=== PATIENT | female | born 1995 | race Caucasian/White ===

== ENCOUNTER 2016-08-19 08:20 | Emergency (ER) | payer MEDICAID ==
[~2016-08-19 08:20] MED LIST: FERROUS SULFAT325 MG PO; MOTRIN600 MG PO; PERCOCET 5/3251 TA1 PO; PHENERGAN25 M1 PO; PRENATAL COMPLE1 TAB PO; PRILOSEC10 MG PO
== END 2016-08-19 09:19 | disposition home or self-care (01) ==
LOC: D.ER 08:20
DX: J01.90 Acute sinusitis, unspecified (principal); F17.200 Nicotine dependence, unspecified, uncomplicated; K21.9 Gastro-esophageal reflux disease without esophagitis

== ENCOUNTER 2016-08-30 18:04 | Emergency (ER) | payer MEDICAID | END 2016-08-30 22:08 | disposition home or self-care (01) | LOC: D.ER 18:04 | DX: J20.9 Acute bronchitis, unspecified (principal); J06.9 Acute upper respiratory infection, unspecified; K21.9 Gastro-esophageal reflux disease without esophagitis ==

== ENCOUNTER 2016-12-04 16:35 | Emergency (ER) | payer OTHER | END 2016-12-04 18:44 | disposition home or self-care (01) | LOC: D.ER 16:35 | DX: G43.909 Migraine, unspecified, not intractable, without status migrainosus (principal); F17.200 Nicotine dependence, unspecified, uncomplicated; K21.9 Gastro-esophageal reflux disease without esophagitis ==

== ENCOUNTER 2017-05-01 21:31 | Emergency (ER) | payer SELFPAY | END 2017-05-01 23:23 | disposition home or self-care (01) | LOC: D.ER 21:31 | DX: S99.921A Unspecified injury of right foot, initial encounter (principal); X50.1XXA Overexertion from prolonged static or awkward postures, initial encounter; Y93.89 Activity, other specified; Y92.410 Unspecified street and highway as the place of occurrence of the external cause; K21.9 Gastro-esophageal reflux disease without esophagitis ==

== ENCOUNTER 2017-06-15 13:34 | Emergency (ER) | payer MEDICAID | END 2017-06-15 18:09 | disposition home or self-care (01) | LOC: D.ER 13:34 | DX: M25.561 Pain in right knee (principal); M23.306 Other meniscus derangements, unspecified meniscus, right knee; K21.9 Gastro-esophageal reflux disease without esophagitis ==

== ENCOUNTER 2017-08-21 19:28 | Emergency (ER) | payer MEDICAID | END 2017-08-22 19:15 | disposition left against medical advice (07) | LOC: D.ER 19:28 | DX: S01.80XA Unspecified open wound of other part of head, initial encounter (principal); X58.XXXA Exposure to other specified factors, initial encounter ==

== ENCOUNTER 2017-09-12 21:44 | Emergency (ER) | payer MEDICAID ==
[~2017-09-12] VITALS: Ht 160 cm; Wt 56.2 kg
[2017-09-12 22:01] VITALS: Ht 160 cm; Wt 56.2 kg
[2017-09-13 00:12] VITALS: BP 102/52
== END 2017-09-13 00:13 | disposition home or self-care (01) ==
LOC: D.ER 21:44
DX: T23.252A Burn of second degree of left palm, initial encounter (principal); X08.8XXA Exposure to other specified smoke, fire and flames, initial encounter; Y93.89 Activity, other specified; Y92.019 Unspecified place in single-family (private) house as the place of occurrence of the external cause

== ENCOUNTER 2017-10-13 10:43 | Emergency (ER) | payer MEDICAID ==
[~2017-10-13] VITALS: Ht 160 cm; Wt 56.4 kg
[2017-10-13 10:59] VITALS: Ht 160 cm; Wt 56.4 kg
[2017-10-13] MEDS ORDERED: CLEOCIN HCL300 MG PO (11:23)
[2017-10-13 11:52] VITALS: BP 220/65
[2017-10-14] MEDS ORDERED: TYLENOL W/CODEI1 TAB PO (18:45)
[2017-10-14] MEDS ORDERED: VOLTAREN75 MG PO (18:45)
== END 2017-10-13 11:59 | disposition home or self-care (01) ==
LOC: D.ER 10:43
DX: N75.0 Cyst of Bartholin's gland (principal)

== ENCOUNTER 2017-10-14 15:58 | Emergency (ER) | payer MEDICAID ==
[~2017-10-14] VITALS: Ht 160 cm; Wt 56.5 kg
[~2017-10-14 15:58] MED LIST changes: +CLEOCIN HCL300 MG PO
[2017-10-14 16:35] VITALS: Ht 160 cm; Wt 56.5 kg
[2017-10-14] MEDS ORDERED: VOLTAREN75 MG PO (18:45)
[2017-10-14] MEDS ORDERED: TYLENOL W/CODEI1 TAB PO (18:45)
[2017-10-14 19:16] VITALS: BP 111/72
== END 2017-10-14 19:18 | disposition home or self-care (01) ==
LOC: D.ER 15:58
DX: N90.7 Vulvar cyst (principal); F17.200 Nicotine dependence, unspecified, uncomplicated

== ENCOUNTER 2017-10-21 19:13 | Emergency (ER) | payer MEDICAID ==
[2017-10-14 16:35] VITALS: BMI 22.0
[~2017-10-21 19:13] MED LIST changes: +TYLENOL W/CODEI1 TAB PO; +VOLTAREN75 MG PO
== END 2017-10-21 19:20 | disposition left against medical advice (07) ==
LOC: D.ER 19:13
DX: R07.9 Chest pain, unspecified (principal)

== ENCOUNTER 2017-11-08 19:26 | Emergency (ER) | payer MEDICAID ==
[~2017-11-08] VITALS: Ht 160 cm; Wt 56.4 kg
[2017-11-08 19:41] VITALS: Ht 160 cm; Wt 56.4 kg
[2017-11-08 20:00] LABS: BASOPHILS 0.3 % (0-2); HEMATOCRIT 38.1 % (36.0-48.0); HEMOGLOBIN 12.1 g/dL (12-16); IMMATURE GRANULOCYTES 0.2 % (0-5); LYMPHOCYTES 32.6 % (15-50); MCH 24.4 pg (26.0-34.0); MCHC 31.8 g/dL (31.0-37.0); MEAN PLATELET VOLUME 12.2 fL (7.4-10.4); NEUTROPHILS 54.9 % (40-80); PLATELET COUNT 262 10x3/uL (130-400); RBC 4.95 10x6/uL (4.00-5.40); WBC 10.5 10x3/uL (4.8-10.8)
[2017-11-08 20:11] LABS: APPEARANCE HAZY (CLEAR); BILIRUBIN NEGATIVE (NEGATIVE); COLOR DK YELLOW (YELLOW); GLUCOSE NEGATIVE (NEGATIVE); HCG URINE NEGATIVE (NEGATIVE); KETONE NEGATIVE (NEGATIVE); NITRITE NEGATIVE (NEGATIVE); PROTEIN NEGATIVE (NEGATIVE); UROBILINOGEN NORMAL (NORMAL)
[2017-11-08 20:14] LABS: RED CELLS - URINE 0-5 /hpf (0-5)
[2017-11-08 20:15] LABS: BACTERIA MODERATE /hpf (NONE SEEN)
[2017-11-08 20:15] LABS: ALBUMIN 3.6 g/dL (3.4-5.0); ALKALINE PHOSPHATASE 84 U/L (46-116); ALT (SGPT) 15 U/L (10-68); CALC OSMOLALITY 279 mosm/kg (275-300); CALCIUM 9.1 mg/dL (8.5-10.1); CARBON DIOXIDE 27.3 mmol/L (21.0-32.0); CHLORIDE - SERUM 105 mmol/L (98-107); CREATININE - SERUM 0.8 mg/dL (0.6-1.3); GLUCOSE 83 mg/dL (74-106); POTASSIUM - SERUM 3.8 mmol/L (3.5-5.1); PROTEIN - SERUM 7.6 g/dL (6.4-8.2); SODIUM 141 mmol/L (136-145); UREA NITROGEN 13 mg/dL (7-18); eGFR NON AFRICAN AMERICAN > 90 mL/min (90-120)
[2017-11-08 20:17] LABS: MUCUS <1+ /lpf (NONE SEEN)
[2017-11-08 20:24] LABS: BILIRUBIN - TOTAL 0.08 mg/dL (0.2-1.3)
[2017-11-08] MEDS ORDERED: TORADOL10 MG PO (21:09)
[2017-11-08] MEDS ORDERED: MACROBID100 MG PO (21:09)
[2017-11-08 21:34] VITALS: BP 115/79
[2017-11-11 07:27] LABS: CHLAMYDIA TRACHOMATIS, NAA Negative (Negative)
== END 2017-11-08 21:35 | disposition home or self-care (01) ==
LOC: D.ER 19:26
PROVIDERS: Family Medicine
DX: R10.9 Unspecified abdominal pain (principal); N39.0 Urinary tract infection, site not specified

== ENCOUNTER 2017-11-22 19:52 | Emergency (ER) | payer MEDICAID ==
[~2017-11-22] VITALS: Ht 160 cm; Wt 56.4 kg
[~2017-11-22 19:52] MED LIST changes: +MACROBID100 MG PO; +TORADOL10 MG PO
[2017-11-22 20:01] VITALS: Ht 160 cm; Wt 56.4 kg
[2017-11-22 20:20] LABS: APPEARANCE HAZY (CLEAR); BILIRUBIN NEGATIVE (NEGATIVE); COLOR YELLOW (YELLOW); GLUCOSE NEGATIVE (NEGATIVE); KETONE NEGATIVE (NEGATIVE); NITRITE NEGATIVE (NEGATIVE); PROTEIN NEGATIVE (NEGATIVE); UROBILINOGEN NORMAL (NORMAL)
[2017-11-22 20:22] LABS: BACTERIA MODERATE /hpf (NONE SEEN); EPITHELIAL CELLS 0-5 /hpf (0-5); RED CELLS - URINE 25-50 /hpf (0-5); WHITE CELLS - URINE 0-5 /hpf (0-5)
[2017-11-22 20:23] LABS: AMORPHOUS SEDIMENT <1+ /lpf (NONE SEEN)
[2017-11-22] MEDS ORDERED: MAXALT10 MG PO (21:12)
[2017-11-22] MEDS ORDERED: CIPRO500 MG PO (21:13)
[2017-11-22 21:39] VITALS: BP 116/70
== END 2017-11-22 21:41 | disposition home or self-care (01) ==
LOC: D.ER 19:52
PROVIDERS: Emergency Medicine
DX: G43.909 Migraine, unspecified, not intractable, without status migrainosus (principal); N30.90 Cystitis, unspecified without hematuria; H92.01 Otalgia, right ear; M54.2 Cervicalgia; R35.0 Frequency of micturition

== ENCOUNTER 2017-11-27 16:37 | Emergency (ER) | payer MEDICAID ==
[~2017-11-27] VITALS: Ht 160 cm; Wt 56.4 kg
[~2017-11-27 16:37] MED LIST changes: +CIPRO500 MG PO; +MAXALT10 MG PO
[2017-11-27 16:40] VITALS: Ht 160 cm; Wt 56.4 kg
[2017-11-27] MEDS ORDERED: PHENAZOPYRIDIN200 MG PO (17:32)
[2017-11-27 18:47] VITALS: BP 125/69
== END 2017-11-27 18:48 | disposition home or self-care (01) ==
LOC: D.ER 16:37
DX: N39.0 Urinary tract infection, site not specified (principal)

== ENCOUNTER → 2017-12-10 13:21 | Outpatient (CLI) | payer MEDICAID ==
[2017-11-27 16:40] VITALS: BMI 22.0
[~2017-12-10 13:21] MED LIST changes: +PHENAZOPYRIDIN200 MG PO; +ZOFRAN8 MG PO
== END | disposition home or self-care (01) ==
LOC: D.CT 13:21
DX: N28.89 Other specified disorders of kidney and ureter (principal)

== ENCOUNTER 2017-12-24 08:48 | Emergency (ER) | payer MEDICAID ==
[~2017-12-24] VITALS: Ht 160 cm; Wt 54.5 kg
[~2017-12-24 08:48] MED LIST changes: -ZOFRAN8 MG PO
[2017-12-24 08:58] VITALS: Ht 160 cm; Wt 54.5 kg
[2017-12-24] MEDS ORDERED: MAXALT10 MG PO (10:53)
[2017-12-24] MEDS ORDERED: ZOFRAN8 MG PO (10:53)
[2017-12-24 11:18] VITALS: BP 122/068
== END 2017-12-24 11:19 | disposition home or self-care (01) ==
LOC: D.ER 08:48
DX: G43.909 Migraine, unspecified, not intractable, without status migrainosus (principal); R11.0 Nausea

== ENCOUNTER 2018-01-19 09:58 | Emergency (ER) | payer MEDICAID ==
[~2018-01-19] VITALS: Ht 160 cm; Wt 56.4 kg
[~2018-01-19 09:58] MED LIST changes: +ZOFRAN8 MG PO
[2018-01-19 10:08] VITALS: Ht 160 cm; Wt 56.4 kg
[2018-01-19 11:12] VITALS: BP 130/70
== END 2018-01-19 11:13 | disposition home or self-care (01) ==
LOC: D.ER 09:58
DX: G43.909 Migraine, unspecified, not intractable, without status migrainosus (principal)

== ENCOUNTER 2018-03-04 09:47 | Emergency (ER) | payer MEDICAID ==
[~2018-03-04] VITALS: Ht 160 cm; Wt 55.9 kg
[2018-03-04 10:09] VITALS: Ht 160 cm; Wt 55.9 kg
[2018-03-04] MEDS ORDERED: NORCO 7.5/325 T1 TA1 PO (10:11)
[2018-03-04] MEDS ORDERED: AMOXICILLIN500 M1 PO (10:11)
[2018-03-04 10:54] LABS: BASOPHILS 0.4 % (0-2); HEMATOCRIT 39.1 % (36.0-48.0); HEMOGLOBIN 11.9 g/dL (12-16); IMMATURE GRANULOCYTES 0.2 % (0-5); LYMPHOCYTES 25.4 % (15-50); MCH 22.9 pg (26.0-34.0); MCHC 30.4 g/dL (31.0-37.0); MCV 75.3 fL (80.0-100.0); MEAN PLATELET VOLUME 11.4 fL (7.4-10.4); MONOCYTES 8.5 % (2-11); NEUTROPHILS 63.5 % (40-80); PLATELET COUNT 223 10x3/uL (130-400); RBC 5.19 10x6/uL (4.00-5.40); RDW 16.8 % (11.5-14.5); WBC 10.3 10x3/uL (4.8-10.8)
[2018-03-04 11:06] LABS: APTT 28.4 SECONDS (22.8-39.4); INR 1.03 (0.85-1.17)
[2018-03-04 11:14] LABS: ALBUMIN 3.7 g/dL (3.4-5.0); ALKALINE PHOSPHATASE 59 U/L (46-116); ALT (SGPT) 17 U/L (10-68); BILIRUBIN - TOTAL 0.32 mg/dL (0.2-1.3); CALC OSMOLALITY 277 mosm/kg (275-300); CALCIUM 9.9 mg/dL (8.5-10.1); CARBON DIOXIDE 26.7 mmol/L (21.0-32.0); CHLORIDE - SERUM 104 mmol/L (98-107); CREATININE - SERUM 0.9 mg/dL (0.6-1.3); GLUCOSE 92 mg/dL (74-106); POTASSIUM - SERUM 3.8 mmol/L (3.5-5.1); PROTEIN - SERUM 7.5 g/dL (6.4-8.2); SODIUM 140 mmol/L (136-145); UREA NITROGEN 10 mg/dL (7-18); eGFR NON AFRICAN AMERICAN 82 mL/min (90-120)
[2018-03-04 11:24] LABS: CKMB 0.5 U/L (0.0-3.6); CREATINE KINASE 70 UL (21-215)
[2018-03-04 11:25] LABS: TROPONIN-I < 0.017 ng/mL (0.000-0.060)
[2018-03-04 11:48] LABS: HCG SERUM NEGATIVE (NEGATIVE)
[2018-03-04 12:19] LABS: APPEARANCE HAZY (CLEAR); BILIRUBIN NEGATIVE (NEGATIVE); COLOR STRAW (YELLOW); GLUCOSE NEGATIVE (NEGATIVE); KETONE NEGATIVE (NEGATIVE); NITRITE NEGATIVE (NEGATIVE); PROTEIN NEGATIVE (NEGATIVE); UROBILINOGEN NORMAL (NORMAL)
[2018-03-04 13:12] VITALS: BP 116/75
== END 2018-03-04 13:13 | disposition home or self-care (01) ==
LOC: D.ER 09:47
PROVIDERS: Family Medicine
DX: R53.83 Other fatigue (principal); Z98.890 Other specified postprocedural states; R07.81 Pleurodynia

== ENCOUNTER → 2018-04-02 | Emergency (ER) | payer MEDICAID ==
[~2018-04-02] VITALS: Ht 160 cm; Wt 57.3 kg
[~2018-04-02] MED LIST changes: +AMOXICILLIN500 M1 PO; +NORCO 7.5/325 T1 TA1 PO
[2018-04-02 20:33] VITALS: BP 128/63; Ht 160 cm; Wt 57.3 kg
[2018-04-02 21:18] LABS: APPEARANCE CLEAR (CLEAR); BILIRUBIN NEGATIVE (NEGATIVE); COLOR YELLOW (YELLOW); GLUCOSE NEGATIVE (NEGATIVE); HCG URINE NEGATIVE (NEGATIVE); KETONE MODERATE mg/dL (NEGATIVE); NITRITE NEGATIVE (NEGATIVE); PROTEIN TRACE mg/dL (NEGATIVE); SPECIFIC GRAVITY 1.025 (1.005-1.020); UROBILINOGEN NORMAL (NORMAL)
== END | disposition home or self-care (01) ==
LOC: D.ER 20:08
PROVIDERS: Family Medicine
DX: G43.909 Migraine, unspecified, not intractable, without status migrainosus (principal); F17.200 Nicotine dependence, unspecified, uncomplicated

== ENCOUNTER 2018-05-06 16:19 | Emergency (ER) | payer MEDICAID ==
[~2018-05-06] VITALS: Ht 160 cm; Wt 58.2 kg
[~2018-05-06 16:19] MED LIST changes: +NAPROSYN500 MG PO
[2018-05-06 17:05] VITALS: Ht 160 cm; Wt 58.2 kg
[2018-05-06 18:50] VITALS: BP 107/59
== END 2018-05-06 18:50 | disposition home or self-care (01) ==
LOC: D.ER 16:19
DX: G43.909 Migraine, unspecified, not intractable, without status migrainosus (principal); F17.210 Nicotine dependence, cigarettes, uncomplicated

== ENCOUNTER 2018-05-17 23:04 | Emergency (ER) | payer MEDICAID ==
[~2018-05-17] VITALS: Ht 160 cm; Wt 57.2 kg
[2018-05-17 23:06] VITALS: Ht 160 cm; Wt 57.2 kg
[2018-05-17 23:48] LABS: BASOPHILS 0.2 % (0-2); EOSINOPHILS 3.5 % (0-7); HEMOGLOBIN 13.1 g/dL (12-16); IMMATURE GRANULOCYTES 0.5 % (0-5); LYMPHOCYTES 31.6 % (15-50); MCV 81.5 fL (80.0-100.0); MEAN PLATELET VOLUME 10.7 fL (7.4-10.4); MONOCYTES 8.8 % (2-11); NEUTROPHILS 55.4 % (40-80); RBC 5.03 10x6/uL (4.00-5.40); RDW 18.4 % (11.5-14.5); WBC 10.6 10x3/uL (4.8-10.8)
[2018-05-17 23:58] LABS: HCG SERUM NEGATIVE (NEGATIVE)
[2018-05-18 00:10] LABS: APTT 28.8 SECONDS (22.8-39.4); PROTIME 12.7 SECONDS (11.6-15.0)
[2018-05-18 00:18] LABS: ALBUMIN 3.5 g/dL (3.4-5.0); ALKALINE PHOSPHATASE 70 U/L (46-116); ALT (SGPT) 30 U/L (10-68); BILIRUBIN - TOTAL 0.18 mg/dL (0.2-1.3); CALC OSMOLALITY 278 mosm/kg (275-300); CARBON DIOXIDE 29.8 mmol/L (21.0-32.0); CHLORIDE - SERUM 103 mmol/L (98-107); CREATININE - SERUM 0.7 mg/dL (0.6-1.3); GLUCOSE 102 mg/dL (74-106); PROTEIN - SERUM 7.2 g/dL (6.4-8.2); SODIUM 139 mmol/L (136-145); UREA NITROGEN 15 mg/dL (7-18); eGFR NON AFRICAN AMERICAN > 90 mL/min (90-120)
[2018-05-18 00:29] LABS: CREATINE KINASE 29 UL (21-215); MAGNESIUM - SERUM 2.2 mg/dL (1.8-2.4)
[2018-05-18 00:36] LABS: PLATELET COUNT 286 10x3/uL (130-400)
[2018-05-18 00:37] LABS: TROPONIN-I < 0.017 ng/mL (0.000-0.060)
[2018-05-18] MEDS ORDERED: OMEPRAZOLE40 MG PO (03:21)
[2018-05-18 03:30] VITALS: BP 120/70
== END 2018-05-18 03:30 | disposition home or self-care (01) ==
LOC: D.ER 23:04
PROVIDERS: Family Medicine
DX: K21.9 Gastro-esophageal reflux disease without esophagitis (principal); R07.89 Other chest pain

== ENCOUNTER 2018-05-25 21:12 | Emergency (ER) | payer MEDICAID ==
[~2018-05-25] VITALS: Ht 160 cm; Wt 57.3 kg
[~2018-05-25 21:12] MED LIST changes: +OMEPRAZOLE40 MG PO
[2018-05-25 21:47] VITALS: Ht 160 cm; Wt 57.3 kg
[2018-05-25] MEDS ORDERED: SUMATRIPTAN SUC25 MG PO (21:48)
[2018-05-25] MEDS ORDERED: ZOFRAN8 MG PO (21:49)
[2018-05-25] MEDS ORDERED: ELAVIL10 MG PO (22:24)
[2018-05-25 23:07] VITALS: BP 115/81
== END 2018-05-25 23:07 | disposition home or self-care (01) ==
LOC: D.ER 21:12
DX: G43.909 Migraine, unspecified, not intractable, without status migrainosus (principal)

== ENCOUNTER 2018-06-12 19:34 | Emergency (ER) | payer SELFPAY ==
[~2018-06-12] VITALS: Ht 160 cm; Wt 59.1 kg
[~2018-06-12 19:34] MED LIST changes: +ELAVIL10 MG PO; +SUMATRIPTAN SUC25 MG PO
[2018-06-12 19:35] VITALS: Ht 160 cm; Wt 59.1 kg
[2018-06-12] MEDS ORDERED: ZPAK PO (21:04)
[2018-06-12] MEDS ORDERED: FLUTICASONE PRO16 GM NASAL (21:04)
[2018-06-12 21:49] VITALS: BP 109/76
== END 2018-06-12 21:42 | disposition home or self-care (01) ==
LOC: D.ER 19:34
DX: J01.90 Acute sinusitis, unspecified (principal)

== ENCOUNTER 2018-08-29 00:03 | Emergency (ER) | payer SELFPAY ==
[~2018-08-29] VITALS: Ht 160 cm; Wt 63.6 kg
[~2018-08-29 00:03] MED LIST changes: +FLUTICASONE PRO16 GM NASAL; +ZPAK PO
[2018-08-29 00:27] VITALS: Ht 160 cm; Wt 63.6 kg
[2018-08-29 01:02] LABS: BASOPHILS 0.3 % (0-2); EOSINOPHILS 3.7 % (0-7); HEMATOCRIT 41.3 % (36.0-48.0); HEMOGLOBIN 13.6 g/dL (12-16); IMMATURE GRANULOCYTES 0.3 % (0-5); LYMPHOCYTES 30.7 % (15-50); MCH 27.6 pg (26.0-34.0); MCHC 32.9 g/dL (31.0-37.0); MCV 83.8 fL (80.0-100.0); MEAN PLATELET VOLUME 11.2 fL (7.4-10.4); MONOCYTES 9.5 % (2-11); NEUTROPHILS 55.5 % (40-80); PLATELET COUNT 241 10x3/uL (130-400); RBC 4.93 10x6/uL (4.00-5.40); RDW 14.9 % (11.5-14.5); WBC 9.6 10x3/uL (4.8-10.8)
[2018-08-29 01:17] LABS: ALBUMIN 3.9 g/dL (3.4-5.0); ALKALINE PHOSPHATASE 71 U/L (46-116); ALT (SGPT) 11 U/L (10-68); CALC OSMOLALITY 277 mosm/kg (275-300); CALCIUM 9.1 mg/dL (8.5-10.1); CHLORIDE - SERUM 104 mmol/L (98-107); CREATININE - SERUM 0.7 mg/dL (0.6-1.3); GLUCOSE 90 mg/dL (74-106); POTASSIUM - SERUM 4.4 mmol/L (3.5-5.1); PROTEIN - SERUM 7.7 g/dL (6.4-8.2); SODIUM 140 mmol/L (136-145); UREA NITROGEN 11 mg/dL (7-18); eGFR NON AFRICAN AMERICAN > 90 mL/min (90-120)
[2018-08-29] MEDS ORDERED: ZOFRAN4 MG PO (02:52)
[2018-08-29 03:31] VITALS: BP 123/75
== END 2018-08-29 03:11 | disposition home or self-care (01) ==
LOC: D.ER 00:03
PROVIDERS: Family Medicine
DX: T63.431A Toxic effect of venom of caterpillars, accidental (unintentional), initial encounter (principal); Y92.89 Other specified places as the place of occurrence of the external cause

== ENCOUNTER 2018-09-12 22:42 | Emergency (ER) | payer SELFPAY ==
[~2018-09-12] VITALS: Ht 160 cm; Wt 62.3 kg
[~2018-09-12 22:42] MED LIST changes: +ZOFRAN4 MG PO
[2018-09-12 22:51] VITALS: BP 114/69; Ht 160 cm; Wt 62.3 kg
[2018-09-13] MEDS ORDERED: NAPROSYN500 MG PO (13:28)
[2018-09-13] MEDS ORDERED: ZOFRAN ODT4 MG/UDTAB PO (13:28)
== END 2018-09-13 00:13 | disposition left against medical advice (07) ==
LOC: D.ER 22:42
DX: G43.909 Migraine, unspecified, not intractable, without status migrainosus (principal)

== ENCOUNTER 2018-09-13 12:46 | Emergency (ER) | payer MEDICAID ==
[~2018-09-13] VITALS: Ht 160 cm; Wt 62.3 kg
[2018-09-13 12:49] VITALS: Ht 160 cm; Wt 62.3 kg
[2018-09-13] MEDS ORDERED: ZOFRAN ODT4 MG/UDTAB PO (13:28)
[2018-09-13] MEDS ORDERED: NAPROSYN500 MG PO (13:28)
[2018-09-13 14:08] VITALS: BP 102/55
== END 2018-09-13 14:08 | disposition home or self-care (01) ==
LOC: D.ER 12:46
DX: G43.909 Migraine, unspecified, not intractable, without status migrainosus (principal)

== ENCOUNTER 2018-10-18 15:00 | Emergency (ER) | payer MEDICAID ==
[~2018-10-18] VITALS: Ht 160 cm; Wt 61.4 kg
[~2018-10-18 15:00] MED LIST changes: +ZOFRAN ODT4 MG/UDTAB PO
[2018-10-18 15:07] VITALS: Ht 160 cm; Wt 61.4 kg
[2018-10-18 15:54] LABS: BASOPHILS 0.3 % (0-2); EOSINOPHILS 3.3 % (0-7); HEMATOCRIT 38.9 % (36.0-48.0); HEMOGLOBIN 13.4 g/dL (12-16); IMMATURE GRANULOCYTES 0.3 % (0-5); LYMPHOCYTES 28.7 % (15-50); MCH 28.8 pg (26.0-34.0); MCHC 34.4 g/dL (31.0-37.0); MCV 83.5 fL (80.0-100.0); MEAN PLATELET VOLUME 11.4 fL (7.4-10.4); MONOCYTES 8.7 % (2-11); NEUTROPHILS 58.7 % (40-80); PLATELET COUNT 238 10x3/uL (130-400); RBC 4.66 10x6/uL (4.00-5.40); RDW 14.3 % (11.5-14.5)
[2018-10-18 15:58] LABS: APPEARANCE CLEAR (CLEAR); BILIRUBIN NEGATIVE (NEGATIVE); COLOR YELLOW (YELLOW); GLUCOSE NEGATIVE (NEGATIVE); HCG URINE POSITIVE (NEGATIVE); KETONE NEGATIVE (NEGATIVE); NITRITE NEGATIVE (NEGATIVE); PROTEIN NEGATIVE (NEGATIVE); UROBILINOGEN NORMAL (NORMAL)
[2018-10-18 16:07] LABS: ALBUMIN 3.6 g/dL (3.4-5.0); ALKALINE PHOSPHATASE 64 U/L (46-116); ALT (SGPT) 15 U/L (10-68); BILIRUBIN - TOTAL 0.28 mg/dL (0.2-1.3); CALC OSMOLALITY 277 mosm/kg (275-300); CARBON DIOXIDE 26.3 mmol/L (21.0-32.0); CHLORIDE - SERUM 104 mmol/L (98-107); CREATININE - SERUM 0.8 mg/dL (0.6-1.3); GLUCOSE 126 mg/dL (74-106); POTASSIUM - SERUM 3.7 mmol/L (3.5-5.1); SODIUM 139 mmol/L (136-145); UREA NITROGEN 6 mg/dL (7-18); eGFR NON AFRICAN AMERICAN > 90 mL/min (90-120)
[2018-10-18 16:11] LABS: AMYLASE - SERUM 51 U/L (25-115); LIPASE 105 U/L (73-393); TROPONIN-I < 0.017 ng/mL (0.000-0.060)
[2018-10-18] MEDS ORDERED: ZOFRAN ODT4 MG/UDTAB PO (18:40)
[2018-10-18 20:52] VITALS: BP 102/56
== END 2018-10-18 20:50 | disposition home or self-care (01) ==
LOC: D.ER 15:00
PROVIDERS: Family Medicine
DX: Z34.01 Encounter for supervision of normal first pregnancy, first trimester (principal); Z3A.01 Less than 8 weeks gestation of pregnancy

== ENCOUNTER 2018-10-23 22:29 | Emergency (ER) | payer SELFPAY ==
[~2018-10-23] VITALS: Ht 160 cm; Wt 65.5 kg
[2018-10-23 22:31] VITALS: Ht 160 cm; Wt 65.5 kg
[2018-10-23 22:50] LABS: APPEARANCE CLEAR (CLEAR); BILIRUBIN NEGATIVE (NEGATIVE); COLOR YELLOW (YELLOW); GLUCOSE NEGATIVE (NEGATIVE); KETONE NEGATIVE (NEGATIVE); NITRITE POSITIVE (NEGATIVE); PROTEIN NEGATIVE (NEGATIVE); UROBILINOGEN NORMAL (NORMAL)
[2018-10-23 22:52] LABS: BASOPHILS 0.2 % (0-2); EOSINOPHILS 3.3 % (0-7); HEMATOCRIT 40.1 % (36.0-48.0); HEMOGLOBIN 13.6 g/dL (12-16); IMMATURE GRANULOCYTES 0.2 % (0-5); LYMPHOCYTES 31.4 % (15-50); MCH 28.7 pg (26.0-34.0); MCHC 33.9 g/dL (31.0-37.0); MCV 84.6 fL (80.0-100.0); MEAN PLATELET VOLUME 11.2 fL (7.4-10.4); NEUTROPHILS 55.9 % (40-80); PLATELET COUNT 231 10x3/uL (130-400); RBC 4.74 10x6/uL (4.00-5.40); RDW 14.1 % (11.5-14.5); WBC 8.6 10x3/uL (4.8-10.8)
[2018-10-23 22:53] LABS: BACTERIA MANY /hpf (NONE SEEN); EPITHELIAL CELLS 0-5 /hpf (0-5); RED CELLS - URINE 0-5 /hpf (0-5); WHITE CELLS - URINE 0-5 /hpf (0-5)
[2018-10-23 23:02] LABS: HCG SERUM POSITIVE (NEGATIVE)
[2018-10-23 23:33] LABS: ALBUMIN 3.6 g/dL (3.4-5.0); ALKALINE PHOSPHATASE 56 U/L (46-116); ALT (SGPT) 15 U/L (10-68); BILIRUBIN - TOTAL 0.21 mg/dL (0.2-1.3); CALCIUM 9.4 mg/dL (8.5-10.1); CARBON DIOXIDE 27.4 mmol/L (21.0-32.0); CREATININE - SERUM 0.6 mg/dL (0.6-1.3); GLUCOSE 98 mg/dL (74-106); HCG - QUANTITATIVE (MATERNAL) 63605 mIU/mL; PROTEIN - SERUM 6.8 g/dL (6.4-8.2); UREA NITROGEN 7 mg/dL (7-18); eGFR NON AFRICAN AMERICAN > 90 mL/min (90-120)
[2018-10-23 23:37] LABS: CALC OSMOLALITY 278 mosm/kg (275-300); CHLORIDE - SERUM 107 mmol/L (98-107); POTASSIUM - SERUM 4.1 mmol/L (3.5-5.1); SODIUM 141 mmol/L (136-145)
[2018-10-24] MEDS ORDERED: KEFLEX500 MG PO (01:21)
[2018-10-24 01:49] VITALS: BP 114/74
== END 2018-10-24 01:50 | disposition home or self-care (01) ==
LOC: D.ER 22:29
PROVIDERS: Family Medicine
DX: O23.41 Unspecified infection of urinary tract in pregnancy, first trimester (principal); Z3A.01 Less than 8 weeks gestation of pregnancy; O46.91 Antepartum hemorrhage, unspecified, first trimester

== ENCOUNTER 2018-10-28 13:39 | Emergency (ER) | payer MEDICAID ==
[~2018-10-28] VITALS: Ht 160 cm; Wt 65.5 kg
[~2018-10-28 13:39] MED LIST changes: +KEFLEX500 MG PO
[2018-10-28 13:42] VITALS: Ht 160 cm; Wt 65.5 kg
[2018-10-28] MEDS ORDERED: PRENAVITE1 TAB PO (13:45)
[2018-10-28 14:43] LABS: APPEARANCE CLEAR (CLEAR); BILIRUBIN NEGATIVE (NEGATIVE); COLOR YELLOW (YELLOW); GLUCOSE NEGATIVE (NEGATIVE); KETONE LARGE mg/dL (NEGATIVE); NITRITE NEGATIVE (NEGATIVE); PROTEIN TRACE mg/dL (NEGATIVE); UROBILINOGEN NORMAL (NORMAL)
[2018-10-28 15:29] VITALS: BP 126/84
== END 2018-10-28 15:48 | disposition home or self-care (01) ==
LOC: D.ER 13:39
PROVIDERS: Emergency Medicine
DX: O26.891 Other specified pregnancy related conditions, first trimester (principal); Z3A.01 Less than 8 weeks gestation of pregnancy

== ENCOUNTER 2018-11-27 14:02 | Emergency (ER) | payer MEDICAID ==
[~2018-11-27] VITALS: Ht 160 cm; Wt 60.5 kg
[~2018-11-27 14:02] MED LIST changes: +PRENAVITE1 TAB PO
[2018-11-27 14:11] VITALS: Ht 160 cm; Wt 60.5 kg
[2018-11-27 15:54] LABS: BASOPHILS 0.1 % (0-2); EOSINOPHILS 2.1 % (0-7); HEMATOCRIT 37.1 % (36.0-48.0); HEMOGLOBIN 12.4 g/dL (12-16); IMMATURE GRANULOCYTES 0.3 % (0-5); LYMPHOCYTES 23.4 % (15-50); MCHC 33.4 g/dL (31.0-37.0); MCV 86.7 fL (80.0-100.0); MEAN PLATELET VOLUME 11.4 fL (7.4-10.4); MONOCYTES 8.2 % (2-11); NEUTROPHILS 65.9 % (40-80); PLATELET COUNT 208 10x3/uL (130-400); RBC 4.28 10x6/uL (4.00-5.40); WBC 7.6 10x3/uL (4.8-10.8)
[2018-11-27 16:05] LABS: CALC OSMOLALITY 272 mosm/kg (275-300); CALCIUM 9.3 mg/dL (8.5-10.1); CARBON DIOXIDE 22.9 mmol/L (21.0-32.0); CHLORIDE - SERUM 103 mmol/L (98-107); CREATININE - SERUM 0.6 mg/dL (0.6-1.3); GLUCOSE 111 mg/dL (74-106); POTASSIUM - SERUM 3.6 mmol/L (3.5-5.1); SODIUM 137 mmol/L (136-145); UREA NITROGEN 8 mg/dL (7-18); eGFR NON AFRICAN AMERICAN > 90 mL/min (90-120)
[2018-11-27 16:11] LABS: ALBUMIN 3.6 g/dL (3.4-5.0); ALKALINE PHOSPHATASE 53 U/L (46-116); ALT (SGPT) 12 U/L (10-68); BILIRUBIN - TOTAL 0.29 mg/dL (0.2-1.3); PROTEIN - SERUM 7.3 g/dL (6.4-8.2)
[2018-11-27 16:26] LABS: APPEARANCE CLEAR (CLEAR); BILIRUBIN NEGATIVE (NEGATIVE); COLOR YELLOW (YELLOW); GLUCOSE NEGATIVE (NEGATIVE); KETONE MODERATE mg/dL (NEGATIVE); NITRITE NEGATIVE (NEGATIVE); PROTEIN NEGATIVE (NEGATIVE); UROBILINOGEN NORMAL (NORMAL)
[2018-11-27 18:21] VITALS: BP 105/57
== END 2018-11-27 18:52 | disposition home or self-care (01) ==
LOC: D.ER 14:02
PROVIDERS: Emergency Medicine
DX: O26.891 Other specified pregnancy related conditions, first trimester (principal); O99.331 Smoking (tobacco) complicating pregnancy, first trimester

== ENCOUNTER 2018-12-18 14:53 | Emergency (ER) | payer MEDICAID ==
[~2018-12-18] VITALS: Ht 160 cm; Wt 60.0 kg
[2018-12-18 14:59] VITALS: Ht 160 cm; Wt 60.0 kg
[2018-12-18 17:29] VITALS: BP 102/51
== END 2018-12-18 17:29 | disposition home or self-care (01) ==
LOC: D.ER 14:53
DX: O26.892 Other specified pregnancy related conditions, second trimester (principal); Z3A.15 15 weeks gestation of pregnancy; G43.909 Migraine, unspecified, not intractable, without status migrainosus

== ENCOUNTER 2018-12-21 19:35 | Emergency (ER) | payer MEDICAID ==
[~2018-12-21] VITALS: Ht 160 cm; Wt 60.5 kg
[2018-12-21 19:48] VITALS: Ht 160 cm; Wt 60.5 kg
[2018-12-21 21:07] LABS: BASOPHILS 0.1 % (0-2); EOSINOPHILS 1.3 % (0-7); HEMATOCRIT 36.2 % (36.0-48.0); HEMOGLOBIN 11.9 g/dL (12-16); IMMATURE GRANULOCYTES 0.3 % (0-5); LYMPHOCYTES 12.3 % (15-50); MCH 29.2 pg (26.0-34.0); MCHC 32.9 g/dL (31.0-37.0); MCV 88.7 fL (80.0-100.0); MEAN PLATELET VOLUME 11.5 fL (7.4-10.4); MONOCYTES 5.8 % (2-11); NEUTROPHILS 80.2 % (40-80); PLATELET COUNT 204 10x3/uL (130-400); RBC 4.08 10x6/uL (4.00-5.40); RDW 13.2 % (11.5-14.5); WBC 13.9 10x3/uL (4.8-10.8)
[2018-12-21 21:20] LABS: CALC OSMOLALITY 276 mosm/kg (275-300); CALCIUM 8.6 mg/dL (8.5-10.1); CARBON DIOXIDE 26.3 mmol/L (21.0-32.0); CHLORIDE - SERUM 106 mmol/L (98-107); CREATININE - SERUM 0.6 mg/dL (0.6-1.3); GLUCOSE 83 mg/dL (74-106); SODIUM 141 mmol/L (136-145); UREA NITROGEN 5 mg/dL (7-18); eGFR NON AFRICAN AMERICAN > 90 mL/min (90-120)
[2018-12-21 21:26] LABS: ALBUMIN 2.9 g/dL (3.4-5.0); ALKALINE PHOSPHATASE 61 U/L (46-116); ALT (SGPT) 24 U/L (10-68); BILIRUBIN - TOTAL 0.23 mg/dL (0.2-1.3); PROTEIN - SERUM 6.6 g/dL (6.4-8.2)
[2018-12-21] MEDS ORDERED: ALBUTEROL SULF8.5 GM INH (21:30)
[2018-12-21 22:07] VITALS: BP 114/63
== END 2018-12-21 22:09 | disposition home or self-care (01) ==
LOC: D.ER 19:35
PROVIDERS: Family Medicine
DX: O26.899 Other specified pregnancy related conditions, unspecified trimester (principal); R05 Cough; J20.9 Acute bronchitis, unspecified; R09.89 Other specified symptoms and signs involving the circulatory and respiratory systems; J06.9 Acute upper respiratory infection, unspecified; Z72.0 Tobacco use; Z3A.15 15 weeks gestation of pregnancy

== ENCOUNTER 2018-12-24 08:14 | Emergency (ER) | payer MEDICAID ==
[~2018-12-24] VITALS: Ht 160 cm; Wt 60.3 kg
[~2018-12-24 08:14] MED LIST changes: +ALBUTEROL SULF8.5 GM INH
[2018-12-24 08:17] VITALS: Ht 160 cm; Wt 60.3 kg
[2018-12-24 09:20] LABS: CALC OSMOLALITY 274 mosm/kg (275-300); CALCIUM 8.9 mg/dL (8.5-10.1); CARBON DIOXIDE 25.7 mmol/L (21.0-32.0); CHLORIDE - SERUM 104 mmol/L (98-107); CREATININE - SERUM 0.6 mg/dL (0.6-1.3); GLUCOSE 82 mg/dL (74-106); HEMATOCRIT 35.3 % (36.0-48.0); HEMOGLOBIN 12.3 g/dL (12-16); LYMPHOCYTES 17.6 % (15-50); MCH 29.7 pg (26.0-34.0); MCHC 34.8 g/dL (31.0-37.0); MCV 85.3 fL (80.0-100.0); MEAN PLATELET VOLUME 11.1 fL (7.4-10.4); NEUTROPHILS 76.7 % (40-80); PLATELET COUNT 187 10x3/uL (130-400); POTASSIUM - SERUM 3.8 mmol/L (3.5-5.1); RBC 4.14 10x6/uL (4.00-5.40); RDW 12.9 % (11.5-14.5); SODIUM 139 mmol/L (136-145); UREA NITROGEN 6 mg/dL (7-18); WBC 11.5 10x3/uL (4.8-10.8); eGFR NON AFRICAN AMERICAN > 90 mL/min (90-120)
[2018-12-24 09:26] LABS: ALBUMIN 2.9 g/dL (3.4-5.0); ALKALINE PHOSPHATASE 69 U/L (46-116); ALT (SGPT) 23 U/L (10-68); BILIRUBIN - TOTAL 0.12 mg/dL (0.2-1.3); PROTEIN - SERUM 6.7 g/dL (6.4-8.2)
[2018-12-24 09:47] LABS: APPEARANCE CLEAR (CLEAR); BILIRUBIN NEGATIVE (NEGATIVE); COLOR YELLOW (YELLOW); GLUCOSE NEGATIVE (NEGATIVE); KETONE NEGATIVE (NEGATIVE); NITRITE NEGATIVE (NEGATIVE); PROTEIN NEGATIVE (NEGATIVE); UROBILINOGEN NORMAL (NORMAL)
[2018-12-24 09:48] LABS: BACTERIA MODERATE /hpf (NEGATIVE); EPITHELIAL CELLS 0-5 /hpf (0-5); RED CELLS - URINE 0-5 /hpf (0-5); WHITE CELLS - URINE 0-5 /hpf (NEGATIVE); YEAST <1+ /hpf (NONE SEEN)
[2018-12-24 11:44] VITALS: BP 111/60
== END 2018-12-24 11:08 | disposition home or self-care (01) ==
LOC: D.ER 08:14
PROVIDERS: Family Medicine
DX: O26.892 Other specified pregnancy related conditions, second trimester (principal); Z3A.15 15 weeks gestation of pregnancy; N89.8 Other specified noninflammatory disorders of vagina

== ENCOUNTER 2019-02-12 17:42 | Outpatient (CLI) | payer MEDICAID ==
[2019-02-12 20:39] LABS: UDS - AMPHET NEGATIVE QUAL (NEGATIVE); UDS - BARB NEGATIVE QUAL (NEGATIVE); UDS - BENZO NEGATIVE QUAL (NEGATIVE); UDS - COCAINE NEGATIVE QUAL (NEGATIVE); UDS - OPIATE NEGATIVE QUAL (NEGATIVE); UDS - PCP NEGATIVE QUAL (NEGATIVE); UDS - THC NEGATIVE QUAL (NEGATIVE)
[2019-02-12 20:45] LABS: APPEARANCE CLEAR (CLEAR); COLOR YELLOW (YELLOW); SPECIFIC GRAVITY 1.015 (1.005-1.020)
[2019-02-12 20:46] LABS: BILIRUBIN NEGATIVE (NEGATIVE); GLUCOSE NEGATIVE (NEGATIVE); KETONE MODERATE mg/dL (NEGATIVE); NITRITE POSITIVE (NEGATIVE); PROTEIN TRACE mg/dL (NEGATIVE); UROBILINOGEN NORMAL (NORMAL)
[2019-02-12 20:50] LABS: BACTERIA MANY /hpf (NEGATIVE); EPITHELIAL CELLS 0-5 /hpf (0-5); RED CELLS - URINE 0-5 /hpf (0-5); WHITE CELLS - URINE 0-5 /hpf (NEGATIVE)
[2019-02-12 20:52] LABS: MUCUS <1+ /lpf (NONE SEEN)
== END 2019-02-13 00:18 | disposition home or self-care (01) ==
LOC: D.LDO 17:42 → D.LD 22:12 → D.LDO 02-13 00:18
PROVIDERS: ATTEND Student in an Organized Health Care Education/Training Program
DX: O26.892 Other specified pregnancy related conditions, second trimester (principal); Z3A.22 22 weeks gestation of pregnancy; R10.9 Unspecified abdominal pain; M54.9 Dorsalgia, unspecified; R51 Headache

== ENCOUNTER 2019-09-15 18:21 | Emergency (ER) | payer MEDICAID ==
[~2019-09-15] VITALS: Ht 160 cm; Wt 63.6 kg
[2019-09-15 19:17] VITALS: Ht 160 cm; Wt 63.6 kg
[2019-09-15 19:51] LABS: BASOPHILS 0.4 % (0-2); EOSINOPHILS 8.9 % (0-7); HEMATOCRIT 43.6 % (36.0-48.0); HEMOGLOBIN 14.2 g/dL (12-16); IMMATURE GRANULOCYTES 0.1 % (0-5); LYMPHOCYTES 27.5 % (15-50); MCH 28.5 pg (26.0-34.0); MCHC 32.6 g/dL (31.0-37.0); MCV 87.6 fL (80.0-100.0); MEAN PLATELET VOLUME 11.1 fL (7.4-10.4); MONOCYTES 12.6 % (2-11); NEUTROPHILS 50.5 % (40-80); RBC 4.98 10x6/uL (4.00-5.40); RDW 13.1 % (11.5-14.5); WBC 7.9 10x3/uL (4.8-10.8)
[2019-09-15 19:54] LABS: PLATELET COUNT 237 10x3/uL (130-400)
[2019-09-15 20:05] LABS: HCG SERUM NEGATIVE (NEGATIVE)
[2019-09-15 20:09] LABS: CALC OSMOLALITY 278 mosm/kg (275-300); CALCIUM 8.9 mg/dL (8.5-10.1); CARBON DIOXIDE 28.5 mmol/L (21.0-32.0); CHLORIDE - SERUM 107 mmol/L (98-107); CREATININE - SERUM 0.8 mg/dL (0.6-1.3); GLUCOSE 87 mg/dL (74-106); POTASSIUM - SERUM 3.8 mmol/L (3.5-5.1); SODIUM 140 mmol/L (136-145); UREA NITROGEN 14 mg/dL (7-18); eGFR NON AFRICAN AMERICAN > 90 mL/min (90-120)
[2019-09-15 20:14] LABS: ALBUMIN 3.8 g/dL (3.4-5.0); ALKALINE PHOSPHATASE 84 U/L (30-120); ALT (SGPT) 36 U/L (10-68); BILIRUBIN - TOTAL 0.25 mg/dL (0.2-1.3); C-REACTIVE PROTEIN 1.2 mg/dL (0.0-0.9); PROTEIN - SERUM 7.2 g/dL (6.4-8.2)
[2019-09-15 20:19] LABS: BILIRUBIN NEGATIVE (NEGATIVE); GLUCOSE NEGATIVE (NEGATIVE); KETONE NEGATIVE (NEGATIVE); NITRITE NEGATIVE (NEGATIVE); UROBILINOGEN NORMAL (NORMAL)
[2019-09-15 21:00] LABS: MONO NEGATIVE (NEGATIVE)
[2019-09-15 21:44] VITALS: BP 117/64
[2019-09-17 10:11] LABS: EBV - NUCLEAR ANTIGEN AB IGG 69.7 U/mL (0.0-17.9); EBV VIRAL CAPSID AB IGM <36.0 U/mL (0.0-35.9)
== END 2019-09-15 21:45 | disposition home or self-care (01) ==
LOC: D.ER 18:21
PROVIDERS: Family Medicine
DX: B34.9 Viral infection, unspecified (principal); Z20.828 Contact with and (suspected) exposure to other viral communicable diseases; R05 Cough; R50.9 Fever, unspecified; R51 Headache

== ENCOUNTER 2019-11-23 22:04 | Emergency (ER) | payer OTHER ==
[~2019-11-23] VITALS: Ht 160 cm; Wt 68.2 kg
[2019-11-23 22:12] VITALS: Ht 160 cm; Wt 68.2 kg
[2019-11-23 22:53] LABS: BILIRUBIN NEGATIVE (NEGATIVE); KETONE NEGATIVE (NEGATIVE); NITRITE NEGATIVE (NEGATIVE); UROBILINOGEN NORMAL mg/dL (< 2)
[2019-11-23 23:00] LABS: BASOPHILS 0.2 % (0-2); EOSINOPHILS 4.9 % (0-7); HEMATOCRIT 43.1 % (36.0-48.0); HEMOGLOBIN 14.1 g/dL (12-16); IMMATURE GRANULOCYTES 0.2 % (0-5); LYMPHOCYTES 35.5 % (15-50); MCHC 32.7 g/dL (31.0-37.0); MCV 88.5 fL (80.0-100.0); MEAN PLATELET VOLUME 11.1 fL (7.4-10.4); MONOCYTES 8.1 % (2-11); NEUTROPHILS 51.1 % (40-80); PLATELET COUNT 269 10x3/uL (130-400); RBC 4.87 10x6/uL (4.00-5.40); RDW 12.8 % (11.5-14.5); WBC 9.3 10x3/uL (4.8-10.8)
[2019-11-23 23:10] LABS: CALC OSMOLALITY 272 mosm/kg (275-300); CALCIUM 8.9 mg/dL (8.5-10.1); CARBON DIOXIDE 26.8 mmol/L (21.0-32.0); CHLORIDE - SERUM 104 mmol/L (98-107); CREATININE - SERUM 0.8 mg/dL (0.6-1.3); GLUCOSE 94 mg/dL (74-106); POTASSIUM - SERUM 4.2 mmol/L (3.5-5.1); SODIUM 137 mmol/L (136-145); UREA NITROGEN 11 mg/dL (7-18); eGFR NON AFRICAN AMERICAN > 90 mL/min (90-120)
[2019-11-23 23:13] LABS: HCG SERUM NEGATIVE (NEGATIVE)
[2019-11-23 23:16] LABS: ALBUMIN 3.7 g/dL (3.4-5.0); ALKALINE PHOSPHATASE 89 U/L (30-120); ALT (SGPT) 19 U/L (10-68); BILIRUBIN - TOTAL 0.15 mg/dL (0.2-1.3); LIPASE 99 U/L (73-393); PROTEIN - SERUM 7.3 g/dL (6.4-8.2)
[2019-11-24] MEDS ORDERED: NAPROSYN500 MG PO (01:05)
[2019-11-24 02:40] VITALS: BP 117/79
== END 2019-11-24 02:40 | disposition home or self-care (01) ==
LOC: D.ER 22:04
PROVIDERS: Family Medicine
DX: R10.31 Right lower quadrant pain (principal); N83.201 Unspecified ovarian cyst, right side; K21.9 Gastro-esophageal reflux disease without esophagitis; M54.9 Dorsalgia, unspecified

== ENCOUNTER 2020-06-17 18:18 | Emergency (ER) | payer OTHER ==
[~2020-06-17] VITALS: Ht 160 cm; Wt 65.9 kg
[~2020-06-17 18:18] MED LIST changes: +HYDROCODON-ACE1 EAC7 PO; +ULTRAM50 MG PO
[2020-06-17 18:24] VITALS: Ht 160 cm; Wt 65.9 kg
[2020-06-17 18:33] VITALS: BP 116/60
[2020-06-17] MEDS ORDERED: IBUPROFEN800 MG PO (18:57)
[2020-06-17] MEDS ORDERED: ACETAMINOPHEN500 M1 PO (18:57)
[2020-06-17] MEDS ORDERED: CYCLOBENZAPRINE10 MG PO (18:57)
== END 2020-06-17 19:25 | disposition home or self-care (01) ==
LOC: D.ER 18:18
DX: M43.6 Torticollis (principal); M54.2 Cervicalgia; M79.10 Myalgia, unspecified site; T14.8XXA Other injury of unspecified body region, initial encounter

== ENCOUNTER 2020-07-23 20:18 | Emergency (ER) | payer OTHER ==
[~2020-07-23] VITALS: Ht 160 cm; Wt 65.9 kg
[~2020-07-23 20:18] MED LIST changes: +ACETAMINOPHEN500 M1 PO; +CYCLOBENZAPRINE10 MG PO; +IBUPROFEN800 MG PO
[2020-07-23 20:22] VITALS: BP 109/67; Ht 160 cm; Wt 65.9 kg
== END 2020-07-24 00:12 | disposition home or self-care (01) ==
LOC: D.ER 20:18
DX: G43.909 Migraine, unspecified, not intractable, without status migrainosus (principal)